=== PATIENT | male | born 1970 | race Caucasian/White ===

== ENCOUNTER → 2019-08-13 | Outpatient (CLI) | payer BC | LOC: RAD 08-06 13:09 | DX: N63.10 Unspecified lump in the right breast, unspecified quadrant (principal) ==

== ENCOUNTER → 2020-05-27 | Outpatient (CLI) | payer BC | LOC: CAT 10:24 | PROVIDERS: ATTEND Nurse Practitioner | DX: K40.91 Unilateral inguinal hernia, without obstruction or gangrene, recurrent (principal); K42.9 Umbilical hernia without obstruction or gangrene; K57.30 Diverticulosis of large intestine without perforation or abscess without bleeding ==

== ENCOUNTER → 2020-06-04 | Outpatient (CLI) | payer OTHER | LOC: CAT 09:21 | PROVIDERS: ATTEND Nurse Practitioner | DX: Z13.6 Encounter for screening for cardiovascular disorders (principal); I25.10 Atherosclerotic heart disease of native coronary artery without angina pectoris; E78.00 Pure hypercholesterolemia, unspecified ==